=== PATIENT | male | born 1950 | race Two or more races ===

== ENCOUNTER 2023-06-10 07:12 | Day surgery (SDC) | payer OTHER ==
[~2023-06-10] VITALS: Ht 175.3 cm; Wt 98.9 kg
[~2023-06-10 07:12] MED LIST: COZAAR100 MG PO
== END 2023-06-10 15:10 | disposition home or self-care (01) ==
LOC: CIR.AMB 07:12
PROVIDERS: ATTEND Surgery
DX: K43.0 Incisional hernia with obstruction, without gangrene (principal); Z20.822 Contact with and (suspected) exposure to COVID-19; I10 Essential (primary) hypertension